=== PATIENT | male | born 1950 | race Two or more races ===

== ENCOUNTER 2018-09-22 18:54 | Inpatient (IN) | payer MEDICARE ==
[~2018-09-22] VITALS: Ht 182.9 cm; Wt 81.6 kg
[2018-09-22] MEDS ORDERED: QUET100T PO (19:26)
[2018-09-22] MEDS ORDERED: DIVA-78 PO (19:26)
[2018-09-22] MEDS ORDERED: DIVA500T54 PO (19:26)
[2018-09-22 19:42] LABS: BASOPHILS % (AUTO) 0.8 % (0.0-2.0); EOSINOPHILS # (AUTO) 0.2 K/uL (0.0-0.7); EOSINOPHILS % (AUTO) 2.8 % (0.0-7.0); HEMATOCRIT 38.6 % (36.7-47.1); HEMOGLOBIN 12.8 g/dL (12.5-16.3); LYMPHOCYTES # (AUTO) 0.9 K/uL (20.0-40.0); MEAN CORPUSCULAR HGB CONC 33 g/dL (32.5-36.3); MEAN CORPUSCULAR VOLUME 90.8 fL (73.0-96.2); MONOCYTES # (AUTO) 0.5 K/uL (2.0-10.0); MONOCYTES % (AUTO) 9.1 % (0.0-11.0); NEUTROPHILS # (AUTO) 3.8 K/uL (1.8-8.9); NEUTROPHILS % (AUTO) 70.3 % (38.5-71.5); PLATELET COUNT (AUTO) 225 K/uL (152-348); RED BLOOD CELL COUNT(AUTO) 4.25 MIL/uL (4.06-5.63); WHITE BLOOD COUNT (AUTO) 5.4 K/uL (3.6-10.2)
[2018-09-22 19:48] LABS: CREATININE 1.2 mg/dL (0.6-1.3); POTASSIUM 4.1 mmol/L (3.5-5.1)
[2018-09-22] MEDS ORDERED: IOHEXOL 300MG/ML 100 ML INFUS..BTL ONE (20:15)
[2018-09-22] MEDS ORDERED: SWABABLE VALVE TRANSFER SET EA MC ONE (20:15)
[2018-09-22] MEDS ORDERED: NORMAL SALINE FLUSH 10 ML DISP.SYRIN ONE (20:15)
[2018-09-22] MEDS ORDERED: IV NORMAL SALINE 250 ML IV ONE (20:15)
[2018-09-23] MEDS ORDERED: HYDROCODONE/APAP 10-325 MG TABLET PO PRN (00:30)
[2018-09-23] MEDS ORDERED: MAGNESIUM HYDROXIDE 30 ML LIQUID UDC PO PRN (00:30)
[2018-09-23] MEDS ORDERED: ONDANSETRON 4 MG/2 ML VIAL IV PRN (00:30)
[2018-09-23] MEDS ORDERED: HYDROCODONE/APAP 5-325MG TABLET PO PRN (00:30)
[2018-09-23 02:25] VITALS: BP 146/81
[2018-09-23] MEDS: ACETAMINOPHEN 325 MG TABLET PO PRN (02:41)
[2018-09-23] MEDS: PANTOPRAZOLE SODIUM 40 MG TABLET.DR PO SCH (07:06)
[2018-09-23 08:00] VITALS: BP 115/79
[2018-09-23] MEDS: MORPHINE SULFATE 2 MG/1 ML DISP.SYRIN IV PRN ×2 (13:36→20:51)
[2018-09-23] MEDS ORDERED: diphenhydrAMINE 25 MG CAP PO PRN (14:30)
[2018-09-23] MEDS ORDERED: HALOPERIDOL LACTATE 5 MG/1 ML VIAL IM ONE (14:30)
[2018-09-23] MEDS ORDERED: diphenhydrAMINE 50 MG/1 ML VIAL IV ONE (14:30)
[2018-09-23] MEDS ORDERED: diphenhydrAMINE 50 MG/1 ML VIAL IM PRN (15:30)
[2018-09-23 16:00] VITALS: BP 132/80
[2018-09-23] MEDS ORDERED: IV NORMAL SALINE 500 ML IV ONE (16:00)
[2018-09-23] MEDS: IV NS 1000 ML 1,000 ML IV PRN ×2 (18:07→20:41)
[2018-09-23 20:20] VITALS: BP 151/67
[2018-09-23] MEDS: TEMAZEPAM 15 MG CAPSULE PO PRN (23:23)
[2018-09-24] MEDS: MORPHINE SULFATE 2 MG/1 ML DISP.SYRIN IV PRN (02:10)
[2018-09-24] MEDS: HALOPERIDOL LACTATE 5 MG/1 ML VIAL IM PRN ×2 (03:56→14:09)
[2018-09-24 05:53] LABS: BASOPHILS % (AUTO) 0.7 % (0.0-2.0); EOSINOPHILS # (AUTO) 0.4 K/uL (0.0-0.7); EOSINOPHILS % (AUTO) 10.1 % (0.0-7.0); HEMATOCRIT 33.9 % (36.7-47.1); HEMOGLOBIN 11.2 g/dL (12.5-16.3); LYMPHOCYTES # (AUTO) 0.6 K/uL (20.0-40.0); LYMPHOCYTES % (AUTO) 15.4 % (20.5-51.5); MEAN CORPUSCULAR HEMOGLOBIN 29.9 uug (23.8-33.4); MEAN CORPUSCULAR HGB CONC 33 g/dL (32.5-36.3); MEAN CORPUSCULAR VOLUME 90.8 fL (73.0-96.2); MONOCYTES # (AUTO) 0.5 K/uL (2.0-10.0); NEUTROPHILS # (AUTO) 2.6 K/uL (1.8-8.9); NEUTROPHILS % (AUTO) 62.8 % (38.5-71.5); PLATELET COUNT (AUTO) 172 K/uL (152-348); RED BLOOD CELL COUNT(AUTO) 3.73 MIL/uL (4.06-5.63); WHITE BLOOD COUNT (AUTO) 4.2 K/uL (3.6-10.2)
[2018-09-24 05:55] VITALS: BP 132/66
[2018-09-24 06:13] LABS: PHOSPHOROUS 2.7 mg/dL (2.5-4.9)
[2018-09-24] MEDS: PANTOPRAZOLE SODIUM 40 MG TABLET.DR PO SCH (06:38)
[2018-09-24 07:38] VITALS: BP 142/65
[2018-09-24] MEDS: IV NS 1000 ML 1,000 ML IV PRN ×2 (07:57→19:49)
[2018-09-24] MEDS ORDERED: MORPHINE SULFATE 2 MG/1 ML DISP.SYRIN IV PRN (10:00)
[2018-09-24 12:00] VITALS: BP 140/72
[2018-09-24] MEDS: HYDROCODONE/APAP 10-325 MG TABLET PO PRN (14:09)
[2018-09-24 15:09] VITALS: BP 138/64
[2018-09-24] MEDS: MORPHINE SULFATE 4 MG/1 ML DISP.SYRIN IV PRN (19:49)
[2018-09-24 20:16] VITALS: BP 146/74
[2018-09-25] MEDS: MORPHINE SULFATE 4 MG/1 ML DISP.SYRIN IV PRN ×2 (00:05→18:15)
[2018-09-25] MEDS: ACETAMINOPHEN 325 MG TABLET PO PRN ×3 (04:00→15:45)
[2018-09-25 05:59] VITALS: BP 137/67
[2018-09-25] MEDS: IV NS 1000 ML 1,000 ML IV PRN (06:07)
[2018-09-25] MEDS: PANTOPRAZOLE SODIUM 40 MG TABLET.DR PO SCH (06:19)
[2018-09-25] MEDS: HYDROCODONE/APAP 10-325 MG TABLET PO PRN (06:20)
[2018-09-25] MEDS ORDERED: SERTRALINE HCL 50 MG TABLET PO SCH (09:00)
[2018-09-25 09:11] LABS: CREATININE 0.9 mg/dL (0.6-1.3); MAGNESIUM 1.9 mg/dL (1.8-2.4); PHOSPHOROUS 2.8 mg/dL (2.5-4.9); POTASSIUM 4.2 mmol/L (3.5-5.1)
[2018-09-25 09:24] LABS: EOSINOPHILS # (AUTO) 0.3 K/uL (0.0-0.7); HEMATOCRIT 35.3 % (36.7-47.1); HEMOGLOBIN 11.6 g/dL (12.5-16.3); MONOCYTES # (AUTO) 0.6 K/uL (2.0-10.0)
[2018-09-25 09:36] LABS: BASOPHILS % (AUTO) 0.4 % (0.0-2.0); EOSINOPHILS % (AUTO) 4.4 % (0.0-7.0); LYMPHOCYTES # (AUTO) 0.7 K/uL (20.0-40.0); LYMPHOCYTES % (AUTO) 11.5 % (20.5-51.5); MEAN CORPUSCULAR HEMOGLOBIN 29.9 uug (23.8-33.4); MEAN CORPUSCULAR HGB CONC 33 g/dL (32.5-36.3); MEAN CORPUSCULAR VOLUME 90.5 fL (73.0-96.2); MONOCYTES % (AUTO) 9.7 % (0.0-11.0); NEUTROPHILS # (AUTO) 4.3 K/uL (1.8-8.9); PLATELET COUNT (AUTO) 187 K/uL (152-348)
[2018-09-25 09:42] LABS: WHITE BLOOD COUNT (AUTO) 5.9 K/uL (3.6-10.2)
[2018-09-25 11:00] VITALS: BP 157/83
[2018-09-25] MEDS ORDERED: ACET325T53 PO (13:04)
[2018-09-25] MEDS ORDERED: TEMA15CA5 PO (13:04)
[2018-09-25] MEDS ORDERED: SERT50TA12 PO (13:04)
[2018-09-25] MEDS ORDERED: HYDR-4354 PO (13:04)
[2018-09-25] MEDS ORDERED: NAPR-1009 PO (13:04)
[2018-09-25] MEDS ORDERED: PANT40TA2 PO (13:04)
[2018-09-25 16:00] VITALS: BP 168/89
[2018-09-25 20:21] VITALS: BP 151/82
[2018-09-25] MEDS: TEMAZEPAM 15 MG CAPSULE PO PRN (21:58)
[2018-09-25] MEDS: NAPROXEN 500 MG TABLET PO PRN (23:30)
[2018-09-26] MEDS: MORPHINE SULFATE 4 MG/1 ML DISP.SYRIN IV PRN (00:29)
[2018-09-26] MEDS: HALOPERIDOL LACTATE 5 MG/1 ML VIAL IM PRN (03:10)
[2018-09-26 04:10] VITALS: BP 152/85
[2018-09-26] MEDS: PANTOPRAZOLE SODIUM 40 MG TABLET.DR PO SCH (06:42)
[2018-09-26 08:00] VITALS: BP 159/70
[2018-09-26] MEDS: NAPROXEN 500 MG TABLET PO PRN (13:04)
[2018-09-26] MEDS ORDERED: SERTRALINE HCL 100 MG TABLET PO SCH (14:00)
[2018-09-26 15:00] VITALS: BP 137/59
[2018-09-27] MEDS ORDERED: SERTRALINE HCL 100 MG TABLET PO SCH (09:00)
[2018-09-27] MEDS ORDERED: SERTRALINE HCL 50 MG TABLET PO SCH (09:00)
== END 2018-09-26 21:36 | DRG 82 ==
LOC: ER 18:57 → DOU 09-23 01:23 → CCU 09-23 02:24 → MED 09-23 19:27 → MEDSURG3 09-25 10:47
PROVIDERS: ADMIT Nurse Practitioner Acute Care; ATTEND Nurse Practitioner Acute Care
DX: S06.5X9A Traumatic subdural hemorrhage with loss of consciousness of unspecified duration, initial encounter (principal); G93.41 Metabolic encephalopathy; T82.538A Leakage of other cardiac and vascular devices and implants, initial encounter; R40.2412 Glasgow coma scale score 13-15, at arrival to emergency department; Y92.89 Other specified places as the place of occurrence of the external cause; Z59.0 Homelessness; K40.90 Unilateral inguinal hernia, without obstruction or gangrene, not specified as recurrent; F31.9 Bipolar disorder, unspecified; K57.90 Diverticulosis of intestine, part unspecified, without perforation or abscess without bleeding; F10.10 Alcohol abuse, uncomplicated; I45.10 Unspecified right bundle-branch block; N28.1 Cyst of kidney, acquired; N40.0 Benign prostatic hyperplasia without lower urinary tract symptoms; V17.4XXA Pedal cycle driver injured in collision with fixed or stationary object in traffic accident, initial encounter; Y93.55 Activity, bike riding; Y92.410 Unspecified street and highway as the place of occurrence of the external cause; Z82.3 Family history of stroke; Z82.5 Family history of asthma and other chronic lower respiratory diseases; Z87.891 Personal history of nicotine dependence; K21.9 Gastro-esophageal reflux disease without esophagitis; E86.0 Dehydration; I71.4 Abdominal aortic aneurysm, without rupture
CPT/HCPCS: 36415; 70450; 71045; 83735; 84100; 85025; 93005; A4663; G0378; J1200; J1630; J2270; J2405; J3490; J7030; J7040; J7050; Q9967